=== PATIENT | male | born 2000 | race Caucasian/White ===

== ENCOUNTER 2023-05-31 20:18 | Emergency (ER) | payer SELFPAY ==
[2023-05-31 20:21] VITALS: BP 125/78; PULSE 113; RESP 18; TEMP 36.6; O2SAT 98
--- NOTE | 2023-05-31 20:35 | ED.GENADUL_ITS ---
Discharge Plan Disposition Patient Disposition: Home Condition: Stable Discharge Details Clinical Impression: Urethritis Primary Care Provider: Toyin,Local ED Provider: Jay Mckeon Home Meds and New Rx's Prescriptions: New doxycycline hyclate 100 mg tablet 100 mg PO BID Qty: 14 0RF Discharge Instructions Instructions: Nonspecific Urethritis in Men (ED) Additional Instructions: if symptoms persist follow up with either your primary care provider your urologist If you feel more ill, have severe abdominal pain or fevers return to the emergency department Medical Decision Making 22 yo male who denies chornic medical problems comes in with cc of one month of burning of his urethra and painful urination and doesn't feel he is emptying his bladder fully. Denies fevers, chills, chest pain. States he has been drinking a lot of water today and despite this doesn't feel he needs to urinate. Has normal appearing penis and scrotum, no tenderness or discharge on exam but does note he has had some discharge intermittently. He is in a monogamous relationship and states his partner had negative std testing. Will obtain ua, gc/chlamydia pcr, cbc, cmp and reassess. labs unremarkable, discussed results with pt and after discussion he wants empiric treatment for std's so ceftriaxone and doxy ordered, advised to f/u with pcp, return precautions given Differential Diagnosis Differential Diagnosis: urethritis, uti Lab Data Lab results reviewed: Yes I reviewed the patient's lab results. HPI General Mode of arrival: ambulatory . Date/Time Provider Initiated Documentation: 05/31/23 20:19 . Limitations to Documentation: no limitations . Information obtained by: patient . History of Present Illness 22 year old M presents to the emergency department with the chief complaint of painful urinating, described as moderate, Patient started experiencing this month(s) (1) and it has been constant. No relieving factors improve symptom(s), No exacerbating factors reported . Patient notes denies chest pain and fever/chills. Patient did receive the following treatments prior to arrival, none Related Data Home Medications Medication Instructions Recorded Confirmed doxycycline hyclate 100 mg tablet 100 mg PO BID #14 tabs 05/31/23 Previous Rx's Medication Instructions Recorded doxycycline hyclate 100 mg tablet 100 mg PO BID #14 tabs 05/31/23 General Stated Complaint: Urinary VIKTOR: 4 Review of Systems All systems reviewed & are unremarkable except as noted in HPI and below Constitutional Constitutional: Denies chills, Denies fever(s) and Denies weakness Cardiovascular Cardiovascular: Denies chest pain and Denies dyspnea Respiratory Respiratory: Denies cough and Denies dyspnea Gastrointestinal Gastrointestinal: Denies abdominal pain, Denies nausea and Denies vomiting Integumentary/Breasts Skin/Breast: Denies rash Neurologic Neurologic: Denies weakness PFSH All Active Problems (Updated 05/31/23 @ 22:03 by Jay Mckeon MD) Urethritis (Acute) Social History Smoking/Tobacco Use Status: Never Smoking risk assessment performed?: Yes Alcohol Intake: current Alcohol Intake frequency: a few times a week Drug use: Daily Substance use type: marijuana Exam Const General: no acute distress Orientation: alert HENMT Head: normal to inspection Ears: external ears normal General nose exam: external nose normal Mouth: moist mucous membranes Eyes General: appearance normal, both eyes and all related structures Neck Neck: normal visual inspection Resp Effort & Inspection: normal respiratory effort and able to speak in complete sentences Cardio Rate: regular rate GI Palpation: soft and nontender Penis: normal penis Meatus: no meatla discharge Scrotum: scrotum normal and cremasteric reflex absent Testes: normal and not enlarged Skin General skin exam: no rashes or lesions noted Neuro General: patient alert and patient oriented x3 Extrem General: normal to inspection Psych Mental Status: mental status grossly normal Course Vital Signs Vital signs: Vital Signs Temperature 36.6 C 05/31/23 20:21 Pulse 113 H 05/31/23 20:21 Respiratory Rate 18 05/31/23 20:21 Blood Pressure 125/78 05/31/23 20:21 Pulse Oximetry 98 05/31/23 20:21 Temperature 36.6 C 05/31/23 20:21 Temperature Source Oral 05/31/23 20:21 Pulse 113 H 05/31/23 20:21 Respiratory Rate 18 05/31/23 20:21 Blood Pressure 125/78 05/31/23 20:21 Pulse Oximetry 98 05/31/23 20:21 Oxygen Delivery Method Room Air 05/31/23 20:21 Oxygen Flow Rate 0 05/31/23 20:21
[2023-05-31 21:05] LABS: Abs Immature Grans 0.03 10^3/uL (0.0-0.06); Absolute Basophil Count 0.05 10^3/uL (0.0-0.2); Absolute Eosinophil Count 0.04 10^3/uL (0.0-0.7); Absolute Lymphocyte Count 2.71 10^3/uL (1.2-3.4); Absolute Neutrophil Count 5.79 10^3/uL (1.2-6.7); Basophils % 0.5; Eosinophils % 0.4; HCT 43.6 % (40.0-50.0); Immature Grans % 0.3; Lymphocytes % 29.1; MCH 29.8 pg (27.0-33.0); MCHC 34.4 % (32.0-36.0); MCV 87 fL (80-95); MPV 9.4 fL (8.0-11.0); Monocytes % 7.5; Neutrophils % 62.2; Platelet Count 300 10^3/uL (130-400); RBC 5.04 10^6/uL (4.36-5.78); RDW 12.8 % (11.8-14.1); RDW-SD 39.6 fL; WBC 9.32 10^3/uL (4.4-10.8)
[2023-05-31 21:05] LABS: Bilirubin Negative (Negative); Blood Negative (Negative); Clarity Clear (Clear); Glucose Negative (Negative); Ketones Trace mg/dL (Negative); Leukocyte Esterase Negative (Negative); Nitrite Negative (Negative); Specific Gravity >= 1.030 (1.005-1.025); Urobilinogen 0.2 mg/dL (Up to 0.2); pH 5.5 (5-8)
[2023-05-31 21:24] LABS: ALT 24 U/L (16-63); AST 23 U/L (15-37); Albumin 3.9 g/dL (3.4-5.0); Alkaline Phosphatase 67 U/L (46-116); Anion Gap 11.4 mmol/L (3-11); BUN 14 mg/dL (7-18); Bilirubin, Total 0.3 mg/dL (0.2-1.0); CO2 25.6 mmol/L (21.0-32.0); CREATININE 1.3 mg/dL (0.70-1.30); Calcium 8.4 mg/dL (8.5-10.1); Chloride 101 mmol/L (98-107); Estimated GFR 78.67 (mL/min/1.73m2); Glucose 112 mg/dL (74-106); Potassium 3.7 mmol/L (3.5-5.1); Sodium 138 mmol/L (136-145); Total Protein 7.2 g/dL (6.4-8.2)
[2023-05-31] MEDS: cefTRIAXone 1 GM VIAL 0.5 GM IM (22:10)
[2023-05-31] MEDS: Doxycycline Hyclate 100 MG CAP PO (22:10)
--- NOTE | 2023-05-31 22:14 | NUR.NOTE ---
Nursing Note: Report to Alfredo Davidson
[2023-06-02 14:16] LABS: Chlamydia Result Negative (Negative); GC Result Negative (Negative)
== END 2023-05-31 22:32 | disposition home or self-care (01) ==
PROVIDERS: Emergency Provider Emergency Medicine
DX: R30.0 Dysuria (principal); N34.2 Other urethritis
CPT/HCPCS: 80053; 87491; 87591; 99283; 81003; 85025; J0696